=== PATIENT | female | born 1985 ===

== ENCOUNTER 2017-11-27 14:15 | Emergency (ER) | payer SELFPAY ==
[2017-11-27 14:56] VITALS: BMI 33.5
--- NOTE | 2017-11-27 16:54 | OBDCSUM ---
Datetime: 11/27/2017 16:10 Discharged to, Provider: Home Follow up at, Provider: Disch Instr Activity: Normal activity Disch Instr Diet: Regular Discharge Instructions, Provider: Routine instructions given Discharge Diagnosis, Provider: Vikki Labor - Undelivered Discharge Time: 11/27/2017 16:10 Follow up in weeks, Provider: 1 day Disch Referrals: None Disch Activity Restrictions: Minimize stair-climbing
--- NOTE | 2017-11-27 16:57 | OBHP ---
Datetime: 11/27/2017 16:00 IP Adm Impression: Term, intrauterine IP Admit Plan: Discharge home Admit Comment, IP Provider: 32 yo female at IUP 40.4 wks present to MAGGY c/o brownish mucus vaginal discharge once yesterday and once today in the morning. She denies any ctx, VB, LOF, positive movements. Patient is scheduled for IOL on 11/30/17. PNC: at [facility] Dr Mercer OBhx: , x2 FT [employer]ON[employer]'S JUROR: no hx of STD or abnormal paps PMH: none PSH: none Meds: PNV NKDA FMH: denies SH: denies etoh, tobacco or drugs O: VSS NAD Lungs: CTA CVS: RRR, + s1 s2 Abd: gravid, nontender no edema Speculum exam: no active bleeding noted, mucus coming out from cervix VE: FT/ long/ high TOCO: quiet A/P: 32 yo female at IUP 40.4 wks with mucus plug expulsion, no active labor. - d/c home - f/u tomorrow at clinic for scheduled US - labor precautiions Case seen and examined with Dr Gomes. Alvaro PGY 2 OB Hospitalist Addendum: Pt seen and examined by me. Agree w/ above. 32 yo at 40+4 wks scheduled for IOL on 11/30/2017, reports that she noticed blood and mucus yesterday and today. Pt de nied ctxns, VB and reports FM. Spec: brown mucus, VE: FT/ long/ high. FHT reactive. Pt given reass urance and discharged home w/ labor preautions. Pt has u/s appoint tomorrow. (ES) Pelvic Type - PN: Adequate Abdomen - PN: Normal Lungs - PN: Normal Heart - PN: Normal Thyroid - PN: Not Done Neurologic - PN: Not Done HEENT - PN: Normal General - PN: Normal FHR - Baseline A Provider: 140 Membranes, Provider: Intact Contraction Comments Provider: quiet Vital Signs Provider: Reviewed; Within Normal Limits IP Chief Complaint: Vaginal bleeding NICHD Variability Prov Fetus A: Moderate 6-25bpm NICHD Accel Fetus A IP Provider: 15X15 FHR Category Provider Fetus A: Category I NICHD Decel Fetus A IP Provider: None Dilatation, Provider: FT Effacement, Provider: long Station, Provider: high Genitourinary Exam: Normal
[2017-11-27 21:58] VITALS: BP 118/65; PULSE 90; RESP 18; TEMP 98
== END 2017-11-27 16:50 | disposition home or self-care (01) ==
LOC: H.EROB2 14:15
DX: O47.1 False labor at or after 37 completed weeks of gestation (principal); O26.93 Pregnancy related conditions, unspecified, third trimester; N89.8 Other specified noninflammatory disorders of vagina; Z3A.40 40 weeks gestation of pregnancy; O48.0 Post-term pregnancy

== ENCOUNTER 2017-11-28 16:37 | Inpatient (IN) | payer SELFPAY ==
[2017-11-28 16:45] VITALS: BMI 37.0
[2017-11-28] MEDS ORDERED: Lactated Ringer's 1,000 ML IV ONE (16:49)
[2017-11-28] MEDS ORDERED: Oxytocin 30 UNIT 30 UNITS/500 ML BAG IV ONE (16:53)
[2017-11-28 17:37] LABS: BASO # 0.1 K/uL (0.0-0.2); BASO % 0.6 % (0.0-2.0); EOS # 0.1 K/uL (0.0-0.7); EOS % 0.9 % (0.0-4.0); HEMOGLOBIN 10.9 g/dL (12.0-16.0); LYMPH % 22.2 % (20.0-40.0); MEAN CELL VOLUME 84.6 fl (81.0-99.0); MEAN CORPUSCULAR HEMOGLOBIN 27.5 pg (27.0-31.0); MEAN CORPUSCULAR HGB CONC 32.5 g/dL (33.0-37.0); MEAN PLATELET VOLUME 10.2 fl (7.2-11.7); MONO # 0.8 K/uL (0.0-0.8); MONO % 8.7 % (0.0-10.0); NEUT % 67.6 % (50.0-75.0); RBC 3.96 Mil/uL (3.80-5.20); RED CELL DISTRIBUTION WIDTH 15.6 % (11.5-14.5); WHITE BLOOD COUNT 8.9 K/uL (4.8-10.8)
[2017-11-28] MEDS: Lactated Ringer's 1,000 ML IV SCH (17:40)
--- NOTE | 2017-11-28 21:26 | OBADHP ---
Datetime: 11/28/2017 17:35 Admit Comment, IP Provider: 32-year-old at 40.5 weeks (confirmed via 1st tri U/S) presents f or anhydramnios from a NST/BPP appointment today. She reports good movement and denies vaginal bleeding and a big gush of fluid from her vagina. She admits to minimal contractions every 15 minutes since yesterday. Vaginal discharge has been increased recently, thick-white with small amounts of bl ood. Her first two pregnancies resulted in with no complications (2004, 2008) other than HTN lat e in her second . : [facility] - Dr Mercer PMH: denies OBHx: x2 (2004 @ 40.0, 2008 @ 40.2). HTN in second , no other complications Meds: denies Allergies: denies Social Hx: denies illicit drugs, tobacco, alcohol ROS: denies headache, change in vision, nausea, vomiting, dizziness, vomiting, constipation, diarr hea and edema. PE: comfortable, in no acute stress CV: RRR Resp: no respiratory distress Abdominal: no tenderness to palpation VE: As per Dr Hand: 3 Labs: Blood type: O+ (antibody neg) GBS: neg GC/CL: neg HIV: neg HbsAg: neg RPR: neg Rubella: immune Assessment: 32-year-old at 40.5 weeks presents for anhydramnios from a NST/BPP appointment today. Plan: -Admit for induction of labor -Cytotec 50mg PO Q4H -continuous EFM -IVFs -Labs -Pain control PRN Case seen and discussed with Dr. Hand --Malahti Nj MD PGY1 [facility] Addendum by Dr. Hand: I have evaluated the patient independently and I agree with the above Pelvic Type - PN: Adequate Extremities - PN: Normal Abdomen - PN: Normal Back - PN: Not Done Breast - PN: Not Done Lungs - PN: Normal Heart - PN: Normal Thyroid - PN: Not Done Neurologic - PN: Not Done HEENT - PN: Normal General - PN: Normal FHR - Baseline A Provider: 130 IP Chief Complaint: Suspected ruptured membranes NICHD Variability Prov Fetus A: Moderate 6-25bpm NICHD Accel Fetus A IP Provider: 15X15 FHR Category Provider Fetus A: Category I NICHD Decel Fetus A IP Provider: None Dilatation, Provider: 2 Effacement, Provider: 20 Station, Provider: -3 Genitourinary Exam: Not Done DTRs - PN: Not Done EGA AdmitDate IP: 40.5 IP Adm Impression: Term, intrauterine IP Admit Plan: Admit to unit; Initiate labor protocol Datetime: 11/28/2017 17:26 Vital Signs Provider: Reviewed; Within Normal Limits Datetime: 11/27/2017 16:00 Membranes, Provider: Intact Contraction Comments Provider: quiet
[2017-11-29] MEDS ORDERED: Oxytocin 30 UNIT 30 UNITS/500 ML BAG IV ONE (02:48)
[2017-11-29] MEDS: Lactated Ringer's 1,000 ML IV SCH (03:30)
[2017-11-29] MEDS ORDERED: Fentanyl/Bupivacaine HCl 250 ML EPI ONE (03:33)
[2017-11-29] MEDS ORDERED: Lidocaine 1% Inj (20ml) ONE (07:16)
[2017-11-29] MEDS ORDERED: Oxycodone/Acetaminophen 5/325 mg Tab PO PRN (09:01)
[2017-11-29] MEDS: OXYTOCIN/0.9 % NS 20 UNIT/1,000 ML BAG IV SCH ×2 (09:20→21:44)
--- NOTE | 2017-11-29 09:35 | OBDS ---
DELIVERY PERSONNEL Delivery Doctor: Aby Maldonado DO [place] Flat Grinder: Makayla briseno Resident: Dr Leblanc(OB Fellow) Dr Mercer MATERNAL INFORMATION Delivery Anesthesia: Epidural Medications in Delivery: PITOCIN Estimated Blood Loss (ml): 100 Placenta Cultured: No Maternal Complications: None Provider Comments: Over intact perineum, of live male at 08:38 AM, Weight 3400 gm, 10/16 A PGAR. Head OP delivered first followed with delivery of right anterior shoulder in a controlled eliana r followed by posterior arm and body. Nuchal cord was noted and reduced. was crying spontaneou sly. Umbilical cord was cut. Skin to skin was done with mother. Placenta was delivered intact spontan eously. Perineum with 2nd degree laceration. Uterus firm and appropriately hemostatic following deliv oleg. Pt tolerated delivery well. No Complications. QBL 100 mL. Patient and baby remained stable. Dr. Maldonado and Dr. Snyder present with delivery. --- Jake Mercer MD PGY-2 OB Hospitalist on-call...With PGY2 and OB fellow I attended delivery. Agree with note. MAHNDO LABOR SUMMARY EDC: 11/23/2017 00:00 No. Babies in Womb: 1 Attempted: No Labor Anesthesia: Epidural LABOR INFORMATION Reason for Induction: Not Applicable Onset of Labor: 11/29/2017 03:00 Complete Dilatation: 11/29/2017 07:40 Cervical Ripening Agents: Cytotec @ (Annotations: Second dose of Cytotec 50mcg given PO ) Oxytocin: N/A Group B Beta Strep: Negative Antibiotics # of Doses: N/A Antibiotics Time of Last Dose: N/A Steroids Given: None Reason Steroids Not Administered: Not Applicable MEMBRANES Membranes Rupture Method: Spontaneous Rupture of Membranes: 11/29/2017 07:40 Length of Rupture (hrs): 0.97 Amniotic Fluid Color: Clear Amniotic Fluid Amount: Scant Amniotic Fluid Odor: Normal STAGES OF LABOR Stage 1 hrs: 4 Stage 1 min: 40 Stage 2 hrs: 0 Stage 2 min: 58 Stage 3 hrs: 0 Stage 3 min: 7 Total Time in Labor hrs: 5 Total Time in Labor min: 45 VAGINAL DELIVERY Episiotomy: None Laceration Extension: Second Degree Laceration Type: Perineal Laceration Repair: Yes Laceration Repair Note: Repair of 2nd degree perineal laceration with (1) 2-0 Rapide. Initial Vag Sponge Count: lAPS=5 WITH RING AND ONE WITHOUT//SPONGE=10 Final Vag Sponge Count: LAPS=5 WITH RING AND ONE WITHOUT AND SPONGES =10 Initial Vag Sharps Count: 1 Final Vag Sharps Count: 1 Sponge Count Correct: Yes Sharps Count Correct: Yes Count Comment: ALL ACCOUNTED AND ACKNOWLDEGE BY DR MERCER AND DR SNYDER BABY A INFORMATION Delivery Date/Time: 11/29/2017 08:38 Method of Delivery: Vaginal Born in Route : No : N/A Forceps: N/A Vacuum Extraction: N/A Shoulder Dystocia : No SHOULDER DYSTOCIA BABY A Delivery Date/Time: 11/29/2017 08:38 PRESENTATION/POSITION BABY A Presentation: Cephalic Cephalic Presentation: Vertex Breech Presentation: N/A PLACENTA INFORMATION BABY A Placenta Delivery Time : 11/29/2017 08:45 Placenta Method of Delivery: Spontaneous Placenta Status: Delivered SCORES BABY A Heart Rate 1 min: >100 bpm Resp Effort 1 min: Good Cry Reflex Irritability 1 min: Cough or Sneeze or Pulls Away Muscle Tone 1 min: Active Motion Color 1 min: Body Pierson, Extremities Blue Resuscitation Effort 1 min: Tactile Stimulation SCORE 1 MIN: 9 Heart Rate 5 min: >100 bpm Resp Effort 5 min: Good Cry Reflex Irritability 5 min: Cough or Sneeze or Pulls Away Muscle Tone 5 min: Active Motion Color 5 min: Body Pierson, Extremities Blue Resuscitation Effort 5 min: N/A SCORE 5 MIN: 9 INFANT INFORMATION BABY A Gestational Age at Delivery: 40.6 Gestational Status: Post-term Infant Outcome : Liveborn Condition : Stable Infant Sex: Male IDENTIFICATION/MEDS BABY A ID Band Number: [id number] ID Band Location: Left Leg; Left Arm Vitamin K Given : Not Given Erythromycin Given: Not Given WEIGHT/LENGTH BABY A Infant Birthweight (gms): 3400 Weight (lb): 7 Infant Weight (oz): 8 CORD INFORMATION BABY A No. Cord Vessels: 3 Nuchal Cord : Around Neck x1, Loose Nuchal Cord Other: N/A True Knot: N/A Infant Cord pH Baby Arterial: N/A Infant Cord pH Baby Venous: N/A Cord Blood Taken: Yes Banking/Donate Info: N/A Suction: Mouth; Nose ASSESSMENT BABY A Infant Complications: None Physical Findings at Delivery: Within Normal Limits Infant Respirations: Appears Normal Dive Supervisor/ALS Called : No Infant Care By: Rafa/Shweta Transferred To: Remains with Mother
[2017-11-30] MEDS: Benzocaine/Menthol SPRAY TOP PRN ×2 (01:39→17:48)
[2017-11-30 06:34] LABS: HEMOGLOBIN 10.5 g/dL (12.0-16.0); MEAN CELL VOLUME 85.2 fl (81.0-99.0); MEAN CORPUSCULAR HEMOGLOBIN 27.9 pg (27.0-31.0); MEAN CORPUSCULAR HGB CONC 32.8 g/dL (33.0-37.0); RBC 3.77 Mil/uL (3.80-5.20); RED CELL DISTRIBUTION WIDTH 15.7 % (11.5-14.5); WHITE BLOOD COUNT 12.5 K/uL (4.8-10.8)
[2017-11-30] MEDS: Multivitamin With Minerals Tab PO SCH (08:24)
--- NOTE | 2017-11-30 09:50 | OBPPN ---
Datetime: 11/30/2017 08:30 PP Pain Prov: Within normal limits PP Nausea Prov: Denies PP Flatus Prov: Yes PP BM Prov: No PP Breasts Prov: Not Done PP Heart Prov: Normal PP Lungs Prov: Normal PP Abdomen/Uterus Prov: Normal PP Lochia Prov: Normal PP Vulva/Perineum Prov: Not Done PP CVA Tenderness Prov: Normal PP Extremities Prov: Normal PP C/S Incision Prov: Not Applicable PP Progress Prov: Normal PP Impression Prov: Normal progression PP Plan Prov: Continue present management PP Progress Note Prov: PPD 1 S: 32 yo s/p NVD on 11/29/2017 at 8:38. Pt. is seen and examined at bedside this AM. No si gnificant overnight events. Pt reports occasional abdominal pain, but well controlled with pain meds. Pt is ambulating without any difficulties. Breast and bottle feeding baby. Tolerating PO diet. Lochi a is similar to light menses in volume. Voiding freely, no bowel movement, but passing gas per rectum . Denies fever, chills, diarrhea, nausea, vomiting, chest pain, dyspnea, and dizziness. O: VS: stable GEN: NAD Cardio: S1S2, no M/G/R Resp: clear breath sounds b/l Abdomen: BS+, NT, Uterus is firm and at the level of the umbilicus. EXT: No edema, calves nontender NEURO/PSYCHI: AAOx3, no grossly focal deficit, preserved affect and mood. Assessment/Plan: 32 yo s/p NVD on 11/29/2017 at 8:38. Pt remains afebrile, tolerating pain with medication, tolerating PO intake, doing well on PPD1. OOB with caution SCDs for DVT prophylaxis, pt ambulating Ibuprofen 600mg for pain. Encourage and ambulating F/u CBC post-delivery: pending . Start feosol 325mg po qdaily Anticipated d/c to home, 12/01/2017. Case dw OB attending --- Jake Mercer MD PGY-2 Patient was seen with the resident I agree with the note IP PP Procedures: None Vital Signs Provider PP: Reviewed; Within Normal Limits
--- NOTE | 2017-11-30 10:59 | OBPPN ---
Datetime: 11/30/2017 08:30 PP Progress Note Prov: PPD 1 S: 32 yo s/p NVD on 11/29/2017 at 8:38. Pt. is seen and examined at bedside this AM. No si gnificant overnight events. Pt reports occasional abdominal pain, but well controlled with pain meds. Pt is ambulating without any difficulties. Breast and bottle feeding baby. Tolerating PO diet. Lochi a is similar to light menses in volume. Voiding freely, no bowel movement, but passing gas per rectum . Denies fever, chills, diarrhea, nausea, vomiting, chest pain, dyspnea, and dizziness. O: VS: stable GEN: NAD Cardio: S1S2, no M/G/R Resp: clear breath sounds b/l Abdomen: BS+, NT, Uterus is firm and at the level of the umbilicus. EXT: No edema, calves nontender NEURO/PSYCHI: AAOx3, no grossly focal deficit, preserved affect and mood. Assessment/Plan: 32 yo s/p NVD on 11/29/2017 at 8:38. Pt remains afebrile, tolerating pain with medication, tolerating PO intake, doing well on PPD1. OOB with caution SCDs for DVT prophylaxis, pt ambulating Ibuprofen 600mg for pain. Encourage and ambulating F/u CBC post-delivery: pending .1 Start feosol 325mg po qdaily Anticipated d/c to home, 12/01/2017. Case dw OB attending --- Jake Mercer MD PGY-2 Patient was seen with the resident I agree with the note Patient seen and examined by me this am. Agree with above note. Encouarged ambulationand breastfee ding. --Dr. Mcgregor
[2017-12-01 06:10] LABS: HEMOGLOBIN 9.3 g/dL (12.0-16.0); MEAN CELL VOLUME 85.3 fl (81.0-99.0); MEAN CORPUSCULAR HEMOGLOBIN 27.7 pg (27.0-31.0); MEAN CORPUSCULAR HGB CONC 32.5 g/dL (33.0-37.0); RBC 3.35 Mil/uL (3.80-5.20); RED CELL DISTRIBUTION WIDTH 15.7 % (11.5-14.5)
[2017-12-01] MEDS: Multivitamin With Minerals Tab PO SCH (09:33)
--- NOTE | 2017-12-01 10:12 | OBPPN ---
Datetime: 12/01/2017 06:00 PP Pain Prov: Within normal limits PP Nausea Prov: Denies PP Flatus Prov: Yes PP BM Prov: No PP Breasts Prov: Not Done PP Heart Prov: Normal PP Lungs Prov: Normal PP Abdomen/Uterus Prov: Normal PP Lochia Prov: Normal PP Vulva/Perineum Prov: Normal PP CVA Tenderness Prov: Not Done PP Extremities Prov: Normal PP C/S Incision Prov: Not Applicable PP Progress Prov: Normal PP Impression Prov: Normal progression PP Plan Prov: Continue present management; Discharge PP Progress Note Prov: Post- note S: Patient seen this morning at bedside, she is now s/p on 11/29/17, today is PPD 2. Pt reports no complaints. Minimal abdominal pain but is tolerable with pain medication. She is tolera ting PO intake w/o N/V, ambulating to bathroom without any difficulties. Lochia is reported as simila r to menses in volume, Breast feeding w/o difficulty. Patient reports flatus but no BM as of yet. O: VS WNL PE: Patient is resting comfortably in her hospital bed. In no acute distress. HEENT: EOMI, Mucous membrane moist. RESP: Clear air entry bilaterally. CV: RRR, no murmurs, gallops or rubs. ABD: soft, non-tender, uterus firm below umbilicus LE: No edema, Clem's negative. A/P: 32 y/o now s/p on 11/29/17, today is PPD2- normal post- progression. -Encourage ambulation -Encourage -PNV 1 tab PO daily -Ibuprofen 600mg 1 tab Q6h prn for mild-mod pain -Anticipate discharge today, 12/01/17 Lilly Rowley MD PGY1 IP PP Procedures: None Vital Signs Provider PP: Reviewed; Within Normal Limits
--- NOTE | 2017-12-01 10:15 | OBDCSUM ---
Datetime: 12/01/2017 06:02 Discharged to, Provider: Home Follow up at, Provider: [facility] 01/04/ @2pm Disch Instr Activity: Normal activity; May Shower Disch Instr Diet: Regular Discharge Instructions, Provider: Routine instructions given Discharge Diagnosis, Provider: Term Delivered Discharge Time: 12/01/2017 10:00 Follow up in weeks, Provider: 01/04 @2pm Disch Referrals: None Contraception discussed, Prov: Yes Disch Activity Restrictions: No exercising; No lifting; No sexual activity; Nothing in vagina - Inte rcourse, tampons, douche Discharge Comment, Provider: EGA: 39.1 wk Diagnosis: 32 y/o , s/p on 11/29/17 @ 08:38. She delivered a baby boy, Wt 3400 g, APGA R 10/16 Summary: Patient is PPD2 with normal progression. No complications during post- period. Loch ia less than menses. Pt was able to pass gas but has not had BM, She is tolerating regular diet, Fund us firm below umbilicus, able to ambulate w/o any difficulties, voiding well, denies fever, chills, H A, SOB, N/V, calf pain. CBC post-: 10.5/32.1 Discharge Instructions: 1. Continue and increase 2. PNV 1 tab PO daily 3. Ibuprofen 600mg 1 tab PO Q6h prn for mild-mod pain 4. Pt reports she will use condoms for contraception 5. Instructions given to patient: If excessive bleeding, return of pain or increasing pain and/or fever without relief from medication, go to ED 6. PT was urged if feeling sad, mood swing, depression, neglect of baby, suicidal thoughts, homici celia thought should go to ED or call 911 for help 7. Pt should go to her Primary care doctor if she has difficulty with 8. Patient has appointment for care- 01/04 @2pm at [facility] Lilly Rowley MD PGY1 Contraception after Delivery: Control Pill/Patch
[2017-12-01 16:39] VITALS: BP 115/76; PULSE 82; RESP 20; TEMP 97.9; O2SAT 100
== END 2017-12-01 11:55 | disposition home or self-care (01) | DRG 373 ==
LOC: H.L&D 16:50 → H.OB/GYN 11-29 13:18
PROVIDERS: ADMIT Obstetrics & Gynecology; ATTEND Obstetrics & Gynecology
PROC: 4A1HXCZ Monitoring of Products of Conception, Cardiac Rate, External Approach (ICD-10-PCS; 2017-11-28)
PROC: 10E0XZZ Delivery of Products of Conception, External Approach (ICD-10-PCS; principal; 2017-11-29)
PROC: 0KQM0ZZ Repair Perineum Muscle, Open Approach (ICD-10-PCS; 2017-11-29)
DX: O48.0 Post-term pregnancy (principal); O69.81X0 Labor and delivery complicated by cord around neck, without compression, not applicable or unspecified; O70.1 Second degree perineal laceration during delivery; Z37.0 Single live birth; Z3A.40 40 weeks gestation of pregnancy